=== PATIENT | female | born 1935 | race Caucasian/White ===

== ENCOUNTER 2020-08-19 09:28 | Outpatient (CLI) | payer MEDICARE, MEDICAID ==
--- NOTE | 2020-08-19 11:54 | RAD ---
Barium enema air contrast HISTORY: Diminished caliber of stool. FINDINGS: Extensive diverticula throughout the sigmoid colon. Moderate diverticula of the left colon. No focal filling defect or area of persistent constriction. Terminal ileum was refluxed and has a normal appearance. IMPRESSION : Diverticulosis. No evidence of diverticulitis.
== END 2020-08-19 09:29 | disposition home or self-care (01) ==
LOC: RAD 09:28
PROVIDERS: ATTEND Specialist
DX: R19.5 Other fecal abnormalities (principal); K57.90 Diverticulosis of intestine, part unspecified, without perforation or abscess without bleeding
CPT/HCPCS: 74280